=== PATIENT | male | born 1985 | race Caucasian/White ===

== ENCOUNTER 2020-01-01 11:47 | Emergency (ER) | payer OTHER, SELFPAY ==
[2020-01-01 11:54] VITALS: BP 134/79; PULSE 73; RESP 18; TEMP 36.9; O2SAT 97
--- NOTE | 2020-01-01 12:21 | ED.WOUNDLAC ---
HPI - Wound/Laceration General Chief Complaint: Wound/Laceration Stated Complaint: sore on top of left foot Time Seen by Provider: 01/01/20 12:20 Source: patient and RN notes reviewed Mode of arrival: ambulatory Limitations: no limitations History of Present Illness HPI narrative: 34-year-old male presents with concern for a wound on the top of his left foot. Reports the area started as a pimple in September, however went away. Reports in September he tried to drain it with a needle with no results. Reports in the last several days it has become larger, raised, red, tender. Denies any intervention Extremity Location: Left: foot Related Data Home Medications Medication Instructions Recorded Confirmed meloxicam 7.5 mg PO DAILY 01/01/20 01/01/20 prazosin 2 mg PO HS 01/01/20 01/01/20 Allergies Allergy/AdvReac Type Severity Reaction Status Date / Time No Known Allergies Allergy Unknown Verified 01/01/20 12:05 Review of Systems Review of Systems: Narrative: CONSTITUTIONAL: Denies malaise, chills, sweats, or fever. CARDIOVASCULAR: Denies chest pain, palpitations RESPIRATORY: Denies dyspnea. SKIN: Reports red, raised, tender area on the dorsal aspect of his left MUSCULOSKELETAL: Denies musculoskeletal pain NEUROLOGIC: Denies numbness, weakness All systems reviewed & are unremarkable except as noted in HPI and below PMFSH Social History Social History Smoking status: Former smoker Comments At time of signature, agree with nursing past medical, surgical, social and family history. There is no relevant family history pertinent to the presenting complaint Exam Narrative: Exam Narrative: GENERAL: Well-appearing, well-nourished, and in no acute distress. HEAD: Normocephalic, atraumatic. EYES: PERRLA, conjunctivae clear NECK: Supple. CHEST: Speaks in full sentences. No respiratory distress. HEART: Regular rate and rhythm. Normal and equal peripheral pulses. EXTREMITIES: Right foot has normal strength and sensation, grossly normal range of motion. Distal pulses palpable and equal bilaterally, skin warm, dry, pink. Capillary refill less than 3 seconds. SKIN: Warm, dry 4 cm of erythema, induration center raised area of 1.5 cm, fluctuant, noted to the dorsal aspect of the left foot beneath the second and third digits NEURO: Alert and oriented x3. PSYCH: Normal mood and affect Course Course Emergency Course: Patient is aware of diagnosis, understands and agrees to treatment plan. Anticipatory guidance given. Patient agrees to follow-up as directed and is aware of reasons to seek care at the emergency department. Portions of this record may have been created with voice recognition software Vital Signs Vital signs: Vital Signs Temperature 98.4 F 01/01/20 11:54 Pulse Rate 73 01/01/20 11:54 Respiratory Rate 18 01/01/20 11:54 Blood Pressure 134/79 01/01/20 11:54 Pulse Oximetry 97 01/01/20 11:54 Temperature 98.4 F 01/01/20 11:54 Pulse Rate 73 01/01/20 11:54 Respiratory Rate 18 01/01/20 11:54 Blood Pressure 134/79 01/01/20 11:54 Pulse Oximetry 97 01/01/20 11:54 Reviewed. Procedures Abscess I/D foot: Date of Incision: 01/01/20 Time of Incision: 12:30 Side (if applicable): left Local Anesthetic: none Technique: needle aspiration Amount of fluid expressed (mL): 2 Irrigation: No Packing used?: none I&D Results: Pus and Blood MDM - Wound/Laceration MDM Narrative Medical decision making narrative: Verbal consent were obtained. The indication for the procedure was clinical suspicion for an abscess. The most fluctuant portion of the abscess was pierced with an 18-gauge needle. I was present for this entire procedure and there were no complications Critical Care Time Critical Care Time Critical Care Time: No Discharge Plan Discharge Clinical Impression: Abscess Patient Dispo
== END 2020-01-01 12:40 | disposition home or self-care (01) ==
PROVIDERS: Emergency Provider Nurse Practitioner
DX: L02.612 Cutaneous abscess of left foot (principal); Z87.891 Personal history of nicotine dependence
CPT/HCPCS: 10160; 99213; G0463

== ENCOUNTER 2021-05-25 09:47 | Outpatient (CLI) | payer OTHER, SELFPAY ==
[2021-05-25 10:06] LABS: Hematocrit 44.6 % (42.0-52.0); Hemoglobin 15.7 g/dL (14.0-18.0); Mean Corpuscular HGB Conc 35.2 g/dl (32-36); Mean Corpuscular Hemoglobin 30.7 pg (26-34); Mean Corpuscular Volume 87.3 fl (80-100); Mean Platelet Volume 9.3 fl (7.4-10.4); Platelet Count Result 245 k/mm3 (150-375); Red Blood Count 5.11 M/mm3 (4.6-6.20); Red Cell Distribution Width 12.6 % (11.5-14.5); White Blood Count 6.8 K/mm3 (4.5-10.0)
[2021-05-25 10:35] LABS: Alanine Aminotransferase 50 U/L (4-50); Albumin Level 4.6 g/dL (3.5-5.1); Alkaline Phosphatase 50 U/L (38-126); Anion Gap 5 mmol/L (8-16); Aspartate Amino Transferase 39 U/L (17-59); Blood Urea Nitrogen 17 mg/dL (9-20); Calcium 9.4 mg/dL (8.4-10.2); Carbon Dioxide 27 mmol/L (22-30); Chloride 105 mmol/L (98-107); Cholesterol 247 mg/dL (0-200); Estimated Glomerular Filt Rate > 60; Glucose 120 mg/dL (65-110); HDL Direct 40 mg/dL; Potassium 4.4 mmol/L (3.4-5.0); Sodium 137 mmol/L (137-145); Triglycerides 182 mg/dL (<150)
[2021-05-25 10:43] LABS: LDL Cholesterol Direct 166 mg/dL
[2021-05-25 11:37] LABS: Folic Acid 7.9 ng/mL (2.76->20)
[2021-05-29 14:10] LABS: Testosterone Free 44.8 pg/mL (35.0-155.0); Testosterone Total 222 ng/dL (250-1100)
== END 2021-05-25 09:48 | disposition home or self-care (01) ==
PROVIDERS: PCP Physician Assistant; Visit Provider Physician Assistant
DX: Z00.00 Encounter for general adult medical examination without abnormal findings (principal); R53.83 Other fatigue
CPT/HCPCS: 36415; 80053; 80061; 82607; 82746; 84402; 84403; 84443; 85027

== ENCOUNTER 2022-01-14 09:32 | Outpatient (CLI) | payer OTHER, SELFPAY ==
[2022-01-19 14:53] LABS: Testosterone Free 80.5 pg/mL (35.0-155.0); Testosterone Total 435 ng/dL (250-1100)
== END 2022-01-14 09:33 | disposition home or self-care (01) ==
LOC: ANHLAB 09:33
PROVIDERS: PCP Physician Assistant; Visit Provider Physician Assistant
DX: E29.1 Testicular hypofunction (principal)
CPT/HCPCS: 36415; 84402; 84403

== ENCOUNTER 2022-03-13 15:04 | Outpatient (CLI) | payer OTHER, SELFPAY ==
--- NOTE | ~2022-03-13 | XR_ITS ---
EXAMINATION: XR chest 2V 03/13/2022 15:18 INDICATION: Cough for 5 days PROCEDURE: 2 view chest COMPARISON: No prior studies for comparison. FINDINGS: The lungs are clear. The cardiomediastinal silhouette is within normal limits. There are no pleural effusions. There is no pneumothorax suspected. IMPRESSION: 1: NO ACUTE CARDIOPULMONARY DISEASE. Reviewed, dictated and finalized at location B. ERCIAL PRODUCER
== END 2022-03-13 15:05 | disposition home or self-care (01) ==
PROVIDERS: PCP Physician Assistant; Visit Provider Physician Assistant
DX: R05.9 Cough, unspecified (principal)
CPT/HCPCS: 71046

== ENCOUNTER 2024-11-29 14:12 | Emergency (ER) | payer OTHER, SELFPAY ==
--- NOTE | ~2024-11-29 | XR_ITS ---
Exam: PA chest with right ribs. TECHNIQUE: PA chest with 4 images of the right ribs were obtained. Comparisons: Chest x-ray 03/13/2022. FINDINGS: Heart is not enlarged. No pneumothorax or pleural effusion. No free air in the diaphragm. No focal pu lmonary consolidation. No rib fracture identified. IMPRESSION: 1. No right rib fracture identified. If symptoms persist or worsen, consider a chest CT for further a ssessment. 2. No acute pulmonary process identified. Reviewed, dictated and finalized at location A. IMPRESSION: 1. No right rib fracture identified. If symptoms persist or worsen, consider a chest CT for further assessment. 2. No acute pulmonary process identified.
--- NOTE | 2024-11-29 14:16 | ED.GENADULT ---
HPI - General Adult General Chief complaint: Unspecified Stated complaint: Rib Pain Time Seen by Provider: 11/29/24 14:49 Mode of arrival: ambulatory Limitations: no limitations History of Present Illness HPI narrative: 39-year-old male presents with concern for right rib pain. Reports last night he was laying on his side in bed when he coughed and felt sudden right rib pain. Reports it starts the anterior and wraps around the posterior ribs. He denies any rash, bruising, redness, swelling. He denies open skin. He reports pain is exacerbated by coughing, sneezing, moving his right arm or bending or twisting in certain. He denies trouble breathing. He has not taken any medications for her symptoms. MD complaint: Rib pain Related Data Home Medications ?Medication ?Instructions ?Recorded ?Confirmed ?Last Taken ?Type divalproex 250 mg tablet,delayed 250 mg PO .QD 06/12/23 07/23/23 Unknown History release sertraline 50 mg tablet 150 mg PO DAILY 06/12/23 07/23/23 Unknown History Allergies Allergy/AdvReac Type Severity Reaction Status Date / Time No Known Allergies Allergy Unknown Verified 07/23/23 11:29 Review of Systems Review of Systems: CONSTITUTIONAL: Denies malaise, chills, sweats, or fever. CARDIOVASCULAR: Denies chest pain, palpitations, or edema. RESPIRATORY: Denies cough or dyspnea. GASTROINTESTINAL: Denies abdominal pain, nausea, vomiting, SKIN: Denies rash or itching, bruising or redness. MUSCULOSKELETAL: Denies back pain, joint pain, or myalgia. Reports right rib pain and tenderness All systems reviewed & are unremarkable except as noted in HPI and below REPLACED BY [facility] Surgical History Surgical History H/O left knee surgery Social History Social History Smoking status: Never smoker Second hand tobacco smoke exposure: No Alcohol intake: current Substance use: unknown Lack of Transportation: YES Lack of Food: Never True Current Housing: I Have Housing Concerned About Future Housing: No Difficulty Paying Gas/Electric Bills: No Difficulty Paying for Meds: No Currently Unemployed: No Education: Associate Degree Difficulty w/ Childcare or Family Care: No Comments At time of signature, agree with nursing past medical, surgical, social and family history. There is no relevant family history pertinent to the presenting complaint Exam Narrative: GENERAL: Well-appearing, well-nourished, and in no acute distress. HEAD: Normocephalic, atraumatic. EYES: PERRLA, sclera clear ENT: Nares clear. Mucous membranes moist. NECK: Supple. CHEST: No respiratory distress. Clear to auscultation. No bony deformities, no asymmetry. Speaks in full sentences. Right anterior rib tenderness, mild tenderness the right posterior ribs HEART: Regular rate and rhythm. No murmur heard. EXTREMITIES: Normal range of motion. No edema. Normal strength and sensation. SKIN: Warm, dry, no visible rash. NEURO: Alert and oriented x3. PSYCH: Normal mood and affect Course Course Emergency Course: Patient is aware of diagnosis, understands and agrees to treatment plan. Anticipatory guidance given. Patient agrees to follow-up as directed and is aware of reasons to seek care at the emergency department. Portions of this record may have been created with voice recognition software Level of Care: Express Care Visit Vital Signs Vital signs: Reviewed. Medical Decision Making MDM Narrative Medical decision making narrative: The patient was evaluated by myself in the [facility] care. History is obtained from patient who is an independent historian and physical exam was performed.? Available medical records were reviewed at this time. ? Exam findings show no acute concerns or changes; patient is non-toxic appearing and is in no distress. Patient is appropriate for outpatient treatment and follow-up. ? I have evaluated and discussed social determinants of health with the patient that could potentially impact subsequent diagnosis and treatment plans. ? Differential diagnosis and treatment plan were discussed with the patient. Patient agrees with discussion and after shared medical decision making agrees with plan of care. All questions were answered to the patient's satisfaction. Imaging Data My impression: Images reviewed, interpreted by radiologist, agree, see report. Radiologist's impression: Exam: PA chest with right ribs. TECHNIQUE: PA chest with 4 images of the right ribs were obtained. Comparisons: Chest x-ray 03/13/2022. FINDINGS: Heart is not enlarged. No pneumothorax or pleural effusion. No free air in the diaphragm. No focal pulmonary consolidation. No rib fracture identified. IMPRESSION: 1. No right rib fracture identified. If symptoms persist or worsen, consider a chest CT for further assessment. 2. No acute pulmonary process identified. Critical Care Time Critical Care Time Critical Care Time: No Discharge Plan Discharge Clinical Impression: Rib pain on right side Patient Disposition: Home Condition: Stable Instructions: Rib Contusion (ED) Additional Instructions: Your x-ray is normal, does not show a fracture. Please use ibuprofen every 6-8 hours for pain, you can take 2 extra-strength Tylenol in between those doses. Use muscle relaxer as needed up to 3 times a day. Muscle relaxer may make you tired cell you should know how a defect you before you work, drive, make important decisions while you are taking it. Breathing exercises will not be effective unless your pain is controlled. Take your pain relieving medications and continue to speak with your primary care doctor about maintaining your pain relief. Strenuous activities should be avoided for the first 3-4 weeks, after which you can commence physical activity as pain allows. If the pain is increasing you may be doing too much. Cough and deep breath at least 10 times per hour. Try holding a cushion firmly against the painful site when you deep breath and cough to decrease the pain. Sit out of bed and keep moving as much as you feel comfortable. This will decrease the risk of developing lung complications. Patient Language: Romanian Prescriptions: New cyclobenzaprine 10 mg tablet 10 mg PO TID PRN (Reason: muscle spasm) Qty: 20 0RF ibuprofen 800 mg tablet 800 mg PO Q6H PRN (Reason: pain) Qty: 30 0RF No Action divalproex 250 mg tablet,delayed release (DR/EC) 250 mg PO .QD sertraline 50 mg tablet 150 mg PO DAILY bupropion HCl 300 mg tablet extended release 24 hr 300 mg PO QAM Qty: 90 3RF Follow-up/Referrals: UNKNOWN,DOCTOR [Primary Care Provider] - Stand Alone Forms: Work/School Release IP Time of Disposition: 15:03
[2024-11-29 14:20] VITALS: BP 123/78; PULSE 86; RESP 20; TEMP 36.7; O2SAT 98
--- OUTSIDE RECORDS SUMMARY | 2024-11-29 14:29 | XMS_ITS | Patient Health Record ---
Author Organization [facility] Address [address] [place] [address] Care Team Providers Care A Class Lineman Name Role Phone Sameera Cannon Unavailable [phone] Reason For Referral No Information Medications Medication SIG (Take, Route, Frequency, Duration) Notes Start Date End Date Status TESTOSTERONE 1.62 % (20.25 MG/1.25 GRAM) TRANSDERMAL GEL PACKET *Reorder from [employer] for eRx and Interaction Alerts* 10/28/2022 Active Sertraline HCl 50 MG Oral 10/28/2022 Active Divalproex Sodium 250 MG 1 tablet Orally Once a day; Duration: 30 days 10/28/2022 Active buPROPion HCl ER (XL) 150 MG Oral 10/28/2022 Active buPROPion HCl ER (XL) 300 MG Oral 10/28/2022 Active Sertraline HCl 100 MG Oral 10/28/2022 Active Depakote 250 MG Oral 10/28/2022 Act rochelle Immunizations Vaccine Route Administration Date Status Comme nts Tdap Unknown 01/22/2016 Administered Problems Problem Type SNOMED Code ICD Code Onset Dates Problem Status W/U Status Risk Notes Problem Moderate recurrent major depression (27368282) Major depressive disorder, recurrent, moderate (F33.1) Active confirmed Encounters Encounter Location Date Provider Diagnosis [facility] [address] [place] [address] 03/29/2024 Sameera Cannon Plan Of Treatment No Information Insurance Providers Payer Name Payer Address Payer Phone Subscriber Number Group Number Insured Name Patient Relationship to Insured Coverage Start Date Coverage End Date [facility] - [employer] Epo [address] [place] [address] [id number] JOHN CARR Self - patient is the insured Medical (General) History Surgical History Surgery Date(Month/Year) Other 01/21/2018
--- OUTSIDE RECORDS SUMMARY | 2024-11-29 14:29 | XMS_ITS | Clinical Summary ---
Author Organization [facility] Address [address] [place] [id number] Care Team Providers Care Facility Designer Name Role Phone Unavailable Primary Care Provider Unavailabl e Social History Tobacco Use Types Packs/Day Years Used Date Smoking Tobacco: Never Assessed Sex and Gender Information Value Date Recorded Sex Assigned at Not on file Legal Sex Male 6:03 PM CDT Gender Identity Not on file Sexual Orientation Not on file Plan of Treatment Health Maintenance Due Date Last Done Comments Annual Physical 1987 Hepatitis C 2002 DTaP, Tdap and Td Vaccines ( 1 - Tdap) 2003 Hepatitis B Vaccines (1 of 3 - 19+ 3-dose series) 2003 HPV Vaccines (1 - 3-dose SCD M series) 2011 COVID-19 Vaccine (2023-2 5 season) 2023 Meningococcal B Vaccine Aged Out No l onger eligible based on patient's age to complete this topic Meningococcal Vaccine Aged Out No zulma martín eligible based on patient's age to complete this topic Pneumococcal Vaccine: Pediat rics (0 to 5 Years) and At-Risk Patients (6 to 49 Years) Aged Out No longer eligible b ased on patient's age to complete this topic RSV Immunizations Under 20 Months Aged Out No longer eligible based on patient's age to complete this topic
== END 2024-11-29 15:08 | disposition home or self-care (01) ==
PROVIDERS: Emergency Provider Nurse Practitioner
DX: R07.81 Pleurodynia (principal)
CPT/HCPCS: 71101; 99213; G0463